=== PATIENT | female | born 1955 | race Caucasian/White ===

== ENCOUNTER → 2017-05-22 | Outpatient (CLI) | payer BC ==
[2017-05-22 10:31] LABS: ALT/SGPT 26 U/L (12-78); AST/SGOT 18 U/L (15-37); BLOOD UREA NITROGEN 20 mg/dl (7-18); BUN/CREATININE RATIO 29.6 (10-20); CALCIUM 9.4 mg/dl (8.5-10.1); CARBON DIOXIDE 29 mmol/L (21-32); CHLORIDE 105 mmol/L (98-107); CREATININE 0.67 mg/dl (0.60-1.20); GLUCOSE 103 mg/dl (70-99); POTASSIUM 4.6 mmol/L (3.5-5.1); SODIUM 139 mmol/L (136-145)
[2017-05-22 10:43] LABS: ALB/GLOB RATIO 1.1 (0.9-2); ALKALINE PHOSPHATASE 97 U/L (45-117); PHOSPHORUS 3.2 mg/dl (2.5-4.9)
[2017-05-22 14:38] LABS: CALCIUM URINE 10.6 mg/dl
== END | disposition home or self-care (01) ==
LOC: C.LAB1850 08:24
PROVIDERS: ATTEND Internal Medicine Endocrinology, Diabetes & Metabolism
DX: E55.9 Vitamin D deficiency, unspecified (principal); E83.52 Hypercalcemia; E04.9 Nontoxic goiter, unspecified

== ENCOUNTER → 2017-11-13 | Outpatient (CLI) | payer BC ==
[2017-11-13 10:23] LABS: ALBUMIN 3.8 gm/dl (3.4-5.0); ALT/SGPT 27 U/L (12-78); BLOOD UREA NITROGEN 14 mg/dl (7-18); CALCIUM 9.5 mg/dl (8.5-10.1); CARBON DIOXIDE 28 mmol/L (21-32); CHOLESTEROL 176 mg/dl (0-200); CREATININE 0.74 mg/dl (0.60-1.20); GLUCOSE 93 mg/dl (70-99); POTASSIUM 4.1 mmol/L (3.5-5.1); SODIUM 135 mmol/L (136-145)
[2017-11-13 10:27] LABS: ALKALINE PHOSPHATASE 109 U/L (45-117); AST/SGOT 20 U/L (15-37); LDL CHOLESTEROL CALCULATED 89 mg/dl; TOTAL PROTEIN 7.2 gm/dl (6.4-8.2)
== END | disposition home or self-care (01) ==
LOC: C.LAB1850 07:50
PROVIDERS: ATTEND Nurse Practitioner Adult Health
DX: Z13.220 Encounter for screening for lipoid disorders (principal); Z82.49 Family history of ischemic heart disease and other diseases of the circulatory system; Z13.1 Encounter for screening for diabetes mellitus

== ENCOUNTER → 2018-04-09 | Outpatient (CLI) | payer BC ==
[2018-04-09 09:55] LABS: HEMATOCRIT 41.8 % (37-47); MEAN CELL VOLUME 93.5 fL (80-100); MEAN CORPUSCULAR HEMOGLOBIN 31.3 pg (25-34); MEAN CORPUSCULAR HGB CONC 33.5 g/dl (32-36); RED CELL DISTRIBUTION WIDTH CV 13.7 % (11.5-14.5); RED CELL DISTRIBUTION WIDTH SD 47.2 fL (36.4-46.3); WHITE BLOOD COUNT 3.23 K/uL (4.8-10.8)
[2018-04-09 10:04] LABS: MEAN PLATELET VOLUME 9.6 fL (7.4-10.4); PLATELET COUNT 267 K/uL (130-400)
[2018-04-09 11:12] LABS: ALBUMIN 3.9 gm/dl (3.4-5.0); ALKALINE PHOSPHATASE 103 U/L (45-117); ALT/SGPT 47 U/L (12-78); AST/SGOT 36 U/L (15-37); BLOOD UREA NITROGEN 13 mg/dl (7-18); CALCIUM 9.4 mg/dl (8.5-10.1); CARBON DIOXIDE 27 mmol/L (21-32); CREATININE 0.78 mg/dl (0.60-1.20); GLUCOSE 89 mg/dl (70-99); POTASSIUM 4.7 mmol/L (3.5-5.1); SODIUM 137 mmol/L (136-145); TOTAL PROTEIN 7.4 gm/dl (6.4-8.2)
== END | disposition home or self-care (01) ==
LOC: C.LAB1850 08:55
PROVIDERS: ATTEND Psychiatry & Neurology Neurology
DX: G25.0 Essential tremor (principal); R25.9 Unspecified abnormal involuntary movements; R29.898 Other symptoms and signs involving the musculoskeletal system

== ENCOUNTER 2020-08-26 08:28 | Inpatient (IN) ==
--- NOTE | 2020-08-26 08:45 | CT Scan Report ---
CT head/brain wo con CLINICAL HISTORY: 64 years-old Female with Stroke Like Symptoms. Acute strokelike symptoms TECHNIQUE: Multiple axial CT images of the head were obtained without contrast. A dose lowering tech nique was utilized adhering to the principles of ALARA. CT DOSE: 537.48 mGy.cm COMPARISON: CTA head and neck 04/24/2018, brain MRI 04/15/2018 FINDINGS: No acute intracranial hemorrhage, midline shift, intracranial mass, hydrocephalus, territorial ischem ia or abnormal extra-axial collection. Age-related involutional changes. Patchy white matter hypodens ities suggest chronic microvascular ischemic disease. The calvarium is intact. The paranasal sinuses, mastoid air cells, and middle ear cavities are clear . IMPRESSION: No acute intracranial abnormality. ACT 112: Negative or not required by law. The above report was generated using voice recognition software. It may contain grammatical, syntax o r spelling errors. Electronically signed by: Merrill Palomo M.D. 08/26/2020 8:44 AM
--- NOTE | 2020-08-26 08:53 | XRay Report ---
XR chest 1V portable HISTORY: 64 years-old Female stroke alert acute strokelike symptoms COMPARISON: Chest radiograph 10/31/2018 TECHNIQUE: Portable AP view of the chest FINDINGS: Cardiomediastinal and hilar silhouettes are within normal limits. There is no pneumothorax, pleural e ffusion, airspace consolidation or overt pulmonary edema. Bones of the chest appear grossly intact. IMPRESSION: No acute process. ACT 112: Negative or not required by law. The above report was generated using voice recognition software. It may contain grammatical, syntax o r spelling errors. Electronically signed by: Merrill Palomo M.D. 08/26/2020 8:52 AM
--- NOTE | 2020-08-26 08:55 | Emergency Department Note ---
History of Present Illness General Chief complaint: Stroke/CVA Symptoms Stated complaint: RT SIDE FACIAL NUMBNESS Time Seen by Provider: 08/26/20 08:32 Source: patient and family ( who is at the bedside) Mode of arrival: ambulatory Limitations: no limitations History of Present Illness This patient comes in after having some facial numbness and slurred speech which started at age 15. She has a history of an asymptomatic stroke that was noted in 2019. She is on a baby aspirin but no blood thinners. A stroke alert was called in triage. I saw the patient very promptly. On my exam she does name objects and her speech is slightly thick but not slurred. She has no change in vision. No fall or head trauma. No recent surgery. No blood or melena in her stool. No chest pain or shortness of breath or abdominal pain. No numbness or weakness of the arms or legs. No difficulty walking. Home Medications Medication Instructions Recorded Confirmed Type acyclovir 400 mg PO BID 10/31/18 08/26/20 History aspirin [Aspirin Low Dose] 81 mg PO DAILY 10/31/18 08/26/20 History lysine 500 mg PO BID 10/31/18 08/26/20 History cholecalciferol (vitamin D3) 25 1,000 unit PO QAM tab 04/01/19 08/26/20 History mcg (1,000 unit) tablet sodium chloride 5 % eye ointment 1 applic OPB HS gm 04/01/19 08/26/20 History turmeric root extract 500 mg 1,000 mg PO DAILY cap 04/01/19 08/26/20 History capsule cetirizine 10 mg tablet 10 mg PO DAILY tab 04/29/19 08/26/20 History ivermectin 1 % topical cream 1 appln TOPICAL DAILY gm 04/29/19 08/26/20 History oxymetazoline 1 % topical cream 1 appln TOPICAL DAILY gm 04/29/19 08/26/20 History propranolol 60 mg capsule,24 60 mg PO DAILY #90 cap 07/12/20 08/26/20 Rx hr,extended release ammonium lactate [Radha-Hydrolac] 1 applic TOPICAL DAILY 08/26/20 08/26/20 History melatonin 5 mg PO HS PRN 08/26/20 08/26/20 History Allergies Allergy/AdvReac Type Severity Reaction Status Date / Time No Known Allergies Allergy Verified 08/26/20 09:49 Past Med/Surg History Medical History (Updated 08/26/20 @ 15:51 by Roger Negrete MD) Blood pressure elevated without history of HTN Chronic cerebral ischemia Cogwheel rigidity Essential tremor H/O malignant neoplasm of skin Hyperglycemia Occipital infarction Parathyroid abnormality Resting tremor Rosacea Surgical History History of abdominoplasty History of basal cell cancer History of bunionectomy History of colposcopy History of rotator cuff surgery History of total left hip arthroplasty S/P tonsillectomy and adenoidectomy [place] teeth extracted Family History Father , Age 44 Myocardial infarction at age 44 Brother Aortic valve disease Sister SVT (supraventricular tachycardia) Paraplegia Diabetes Grandfather (Maternal) Colorectal cancer rectal CA Mother Pancreatic adenocarcinoma Hypertension Denies family history of Ovarian cancer Prostate cancer Breast cancer Social History Smoking Status: Never smoker Hx Alcohol Use: Yes Alcohol Intake Frequency Comment: 2-3 Hx Substance Use: No Preferred Language: Tajik marital status: Current Living Situation: Spouse current occupational status: retired Feels Safe at Home: Yes Dental Care, Regularly: Yes Physical Activity Frequency: 3-4 Times per Week Review of Systems A total of 10 systems reviewed and were otherwise negative Physical Exam Vital Signs Vital Signs - 24 hr 08/26/20 08:30 08/26/20 08:33 08/26/20 08:49 Temperature 36.7 C Temperature Source Oral Pulse Rate 79 79 Pulse Rate from SpO2 Sensor 73 Respiratory Rate 16 15 Respiratory Effort / Characteristics Non-Labored Spontaneous Respiratory Depth Normal Blood Pressure 204/124 H 189/92 H Blood Pressure Mean 150 158 Blood Pressure Position Sitting Pulse Oximetry 98 97 97 Oxygen Delivery Method Room Air Room Air Sepsis Recent Fever Within 48 Hours No Sepsis New/Unexplained Change in Mental Status No Sepsis Action Taken by Nursing No Action Required 08/26/20 09:00 08/26/20 09:16 08/26/20 09:33 Temperature Temperature Source Pulse Rate 84 69 Pulse Rate from SpO2 Sensor 84 70 67 Respiratory Rate 19 18 Respiratory Effort / Characteristics Respiratory Depth Blood Pressure 174/94 H 154/84 H Blood Pressure Mean 125 111 Blood Pressure Position Pulse Oximetry 98 96 97 Oxygen Delivery Method Sepsis Recent Fever Within 48 Hours Sepsis New/Unexplained Change in Mental Status Sepsis Action Taken by Nursing 08/26/20 09:45 08/26/20 09:46 08/26/20 10:00 Temperature Temperature Source Pulse Rate 66 70 60 Pulse Rate from SpO2 Sensor 66 69 62 Respiratory Rate 17 16 13 Respiratory Effort / Characteristics Respiratory Depth Blood Pressure 145/81 H 140/77 Blood Pressure Mean 89 89 Blood Pressure Position Pulse Oximetry 93 97 95 Oxygen Delivery Method Sepsis Recent Fever Within 48 Hours Sepsis New/Unexplained Change in Mental Status Sepsis Action Taken by Nursing 08/26/20 10:01 08/26/20 10:15 08/26/20 10:16 Temperature Temperature Source Pulse Rate 62 64 67 Pulse Rate from SpO2 Sensor 62 65 67 Respiratory Rate 15 25 H 18 Respiratory Effort / Characteristics Respiratory Depth Blood Pressure 145/93 H Blood Pressure Mean 116 Blood Pressure Position Pulse Oximetry 95 94 97 Oxygen Delivery Method Sepsis Recent Fever Within 48 Hours Sepsis New/Unexplained Change in Mental Status Sepsis Action Taken by Nursing 08/26/20 10:30 08/26/20 10:45 08/26/20 11:00 Temperature Temperature Source Pulse Rate 61 63 64 Pulse Rate from SpO2 Sensor 62 63 66 Respiratory Rate 13 13 13 Respiratory Effort / Characteristics Respiratory Depth Blood Pressure 148/76 H 139/78 133/85 Blood Pressure Mean 96 107 103 Blood Pressure Position Pulse Oximetry 97 96 94 Oxygen Delivery Method Sepsis Recent Fever Within 48 Hours Sepsis New/Unexplained Change in Mental Status Sepsis Action Taken by Nursing 08/26/20 12:00 08/26/20 12:15 08/26/20 12:30 Temperature Temperature Source Pulse Rate 63 63 62 Pulse Rate from SpO2 Sensor 65 65 63 Respiratory Rate 13 16 Respiratory Effort / Characteristics Respiratory Depth Blood Pressure 147/85 H 129/79 140/88 Blood Pressure Mean 104 83 109 Blood Pressure Position Pulse Oximetry 96 95 96 Oxygen Delivery Method Sepsis Recent Fever Within 48 Hours Sepsis New/Unexplained Change in Mental Status Sepsis Action Taken by Nursing General: Well developed well nourished middle-aged female who appears n no acute distress, breathing comfortably on room air. Normal speech, slightly thick but not slurred. HEENT: Normal cephalic atraumatic. Pupils are equal round and reactive to light. Extraocular movements are intact. Oropharynx is pink with moist mucous membranes. No swelling of the mouth lips or tongue. Neck: Supple with a midline trachea. No meningeal signs or stiffness, no JVD or bruits. No Stridor. Chest: Clear to auscultation bilaterally. No wheezes or rhonchi. No increased work of breathing. Heart: Regular rate and rhythm without murmurs or gallops. Abdomen: Soft nontender, nondistended without rebound guarding or rigidity. Extremities: No cyanosis clubbing or edema. No calf tenderness or assymetry Spine/Back. Non tender to palpation. No CVA tenderness Skin: Good turgor without rashes. Neurologic exam: Cranial nerves two through 12 are intact. Motor and sensation are intact and symmetrical throughout. She has some slight asymmetry of the nasolabial fold on the right Course Administered Medications Discontinued Medications Clopidogrel Bisulfate (Clopidogrel Bisulfate 300 Mg Tab) 300 mg PO NOW STA Stop: 08/26/20 09:10 Last Admin: 08/26/20 09:43 Dose: Not Given Documented by: [id number] Sodium Chloride (Nss 1000ml) 500 mls @ 999 mls/hr IV .Q31M ONE Stop: 08/26/20 09:49 Last Infusion: 08/26/20 10:14 Dose: 0 mls/hr Documented by: [id number] Admin: 08/26/20 09:42 Dose: 999 mls/hr Documented by: [id number] Ioversol (Optiray 320 125ml) 120 ml IV ONCE ONE Stop: 08/26/20 09:18 Last Admin: 08/26/20 09:17 Dose: 120 ml Documented by: [id number] Critical Care Time Critical Care Time: Yes Total Critical Care Time: 30 Due to the patient's acute strokelike symptoms, need for prompt diagnosis and care, consultation with the teleneurologist and consideration for possible TPA, I have personally spent greater than 30 minutes of critical care time in the direct management of this patient. This includes bedside care, interpretation of diagnostic studies, and testing, discussion with consultants, patient, and family members, and other required patient management activities. This 30 minutes is in excess of all separately billable procedures. Medical Decision Making Differential Diagnosis Stroke, TIA, hypertensive emergency, electrolyte or metabolic abnormality, infection, intracranial hemorrhage, Covid Medical Records Attestation: I reviewed the patient's medical records. Home Medications Current Medication List: was personally reviewed by me Laboratory Data Attestation: I reviewed the patient's lab results. Result diagrams: 08/26/20 08:45 08/26/20 08:45 Lab Results 08/26/20 08/26/20 08/26/20 Range/Units 08:45 08:45 08:45 WBC 3.73 L (4.8-10.8) K/uL RBC 4.58 (4.2-5.4) M/uL Hgb 14.8 (12.0-16.0) g/dL POC Hgb (12.0-16.0) g/dl Hct 43.0 (37-47) % POC Hct (37-47) % MCV 93.9 (80-100) fL MCH 32.3 (25-34) pg MCHC 34.4 (32-36) g/dL RDW Std Deviation 44.6 (36.4-46.3) fL RDW Coeff of [place] 12.9 (11.5-14.5) % Plt Count 332 (130-400) K/uL MPV 9.6 (7.4-10.4) fL Immature Gran % (Auto) 0.0 % Neut % (Auto) 52.8 % Lymph % (Auto) 34.6 % [place] % (Auto) 9.4 % Eos % (Auto) 2.9 % Baso % (Auto) 0.3 % Neut # (Auto) 1.97 (1.4-6.5) K/uL Lymph # (Auto) 1.29 (1.2-3.4) K/uL [place] # (Auto) 0.35 (0.11-0.59) K/uL Eos # (Auto) 0.11 (0-0.5) K/uL Baso # (Auto) 0.01 (0-0.2) K/uL Immature Gran # (Auto) 0.00 (0.00-0.02) K/uL PT 10.6 (9.0-12.0) Seconds INR 1.0 (0.9-1.1) APTT 27.7 (21.0-31.0) Seconds PTT Ratio 1.0 POC Sodium (135-144) mmol/L Sodium 139 (136-145) mmol/L POC Potassium (3.3-5.0) mmol/L Potassium 4.0 (3.5-5.1) mmol/L POC Chloride (101-112) mmol/L Chloride 106 (98-107) mmol/L Carbon Dioxide 27 (21-32) mmol/L POC Total CO2 (24-31) mmol/L Anion Gap 6.0 (3-11) POC Anion Gap (16-25) mmol/L POC BUN (7-18) mg/dl BUN 15 (7-18) mg/dl Creatinine 0.89 (0.6-1.2) mg/dl POC Creatinine (0.6-1.3) mg/dl Est Cr Clr Drug Dosing 58.7 ml/min Est GFR ( Amer) 79.4 Est GFR (Non-Af Amer) 68.5 BUN/Creatinine Ratio 16.6 (10-20) Glucose 104 H (70-99) mg/dl POC Glucose (other) (70-99) mg/dl Calcium 9.6 (8.5-10.1) mg/dl POC Ioniz Calcium Betty (1.12-1.32) mmol/l Magnesium 2.2 (1.8-2.4) mg/dl Total Bilirubin 0.5 (0.2-1) mg/dl AST 18 (15-37) U/L ALT 21 (12-78) U/L Alkaline Phosphatase 82 (45-117) U/L Troponin I < 0.015 (0-0.045) ng/ml Total Protein 7.7 (6.4-8.2) gm/dl Albumin 3.9 (3.4-5.0) gm/dl Globulin 3.8 (2.5-4.0) gm/dl Albumin/Globulin Ratio 1.0 (0.9-2) COVID-19 Eval Order SARS-CoV-2, RNA, NAAT (NEGATIVE) Blood Type Antibody Screen 08/26/20 08/26/20 08/26/20 Range/Units 08:45 08:58 09:15 WBC (4.8-10.8) K/uL RBC (4.2-5.4) M/uL Hgb (12.0-16.0) g/dL POC Hgb 15.3 (12.0-16.0) g/dl Hct (37-47) % POC Hct 45 (37-47) % MCV (80-100) fL MCH (25-34) pg MCHC (32-36) g/dL RDW Std Deviation (36.4-46.3) fL RDW Coeff of [place] (11.5-14.5) % Plt Count (130-400) K/uL MPV (7.4-10.4) fL Immature Gran % (Auto) % Neut % (Auto) % Lymph % (Auto) % [place] % (Auto) % Eos % (Auto) % Baso % (Auto) % Neut # (Auto) (1.4-6.5) K/uL Lymph # (Auto) (1.2-3.4) K/uL [place] # (Auto) (0.11-0.59) K/uL Eos # (Auto) (0-0.5) K/uL Baso # (Auto) (0-0.2) K/uL Immature Gran # (Auto) (0.00-0.02) K/uL PT (9.0-12.0) Seconds INR (0.9-1.1) APTT (21.0-31.0) Seconds PTT Ratio POC Sodium 139 (135-144) mmol/L Sodium (136-145) mmol/L POC Potassium 4.1 (3.3-5.0) mmol/L Potassium (3.5-5.1) mmol/L POC Chloride 103 (101-112) mmol/L Chloride (98-107) mmol/L Carbon Dioxide (21-32) mmol/L POC Total CO2 27 (24-31) mmol/L Anion Gap (3-11) POC Anion Gap 14.0 L (16-25) mmol/L POC BUN 15 (7-18) mg/dl BUN (7-18) mg/dl Creatinine (0.6-1.2) mg/dl POC Creatinine 0.8 (0.6-1.3) mg/dl Est Cr Clr Drug Dosing ml/min Est GFR ( Amer) Est GFR (Non-Af Amer) BUN/Creatinine Ratio (10-20) Glucose (70-99) mg/dl POC Glucose (other) 108 H (70-99) mg/dl Calcium (8.5-10.1) mg/dl POC Ioniz Calcium Betty 1.19 (1.12-1.32) mmol/l Magnesium (1.8-2.4) mg/dl Total Bilirubin (0.2-1) mg/dl AST (15-37) U/L ALT (12-78) U/L Alkaline Phosphatase (45-117) U/L Troponin I (0-0.045) ng/ml Total Protein (6.4-8.2) gm/dl Albumin (3.4-5.0) gm/dl Globulin (2.5-4.0) gm/dl Albumin/Globulin Ratio (0.9-2) COVID-19 Eval [email or web address] SARS-CoV-2, RNA, NAAT (NEGATIVE) Blood Type O Positive Antibody Screen NEGATIVE 08/26/20 Range/Units 09:15 WBC (4.8-10.8) K/uL RBC (4.2-5.4) M/uL Hgb (12.0-16.0) g/dL POC Hgb (12.0-16.0) g/dl Hct (37-47) % POC Hct (37-47) % MCV (80-100) fL MCH (25-34) pg MCHC (32-36) g/dL RDW Std Deviation (36.4-46.3) fL RDW Coeff of [place] (11.5-14.5) % Plt Count (130-400) K/uL MPV (7.4-10.4) fL Immature Gran % (Auto) % Neut % (Auto) % Lymph % (Auto) % [place] % (Auto) % Eos % (Auto) % Baso % (Auto) % Neut # (Auto) (1.4-6.5) K/uL Lymph # (Auto) (1.2-3.4) K/uL [place] # (Auto) (0.11-0.59) K/uL Eos # (Auto) (0-0.5) K/uL Baso # (Auto) (0-0.2) K/uL Immature Gran # (Auto) (0.00-0.02) K/uL PT (9.0-12.0) Seconds INR (0.9-1.1) APTT (21.0-31.0) Seconds PTT Ratio POC Sodium (135-144) mmol/L Sodium (136-145) mmol/L POC Potassium (3.3-5.0) mmol/L Potassium (3.5-5.1) mmol/L POC Chloride (101-112) mmol/L Chloride (98-107) mmol/L Carbon Dioxide (21-32) mmol/L POC Total CO2 (24-31) mmol/L Anion Gap (3-11) POC Anion Gap (16-25) mmol/L POC BUN (7-18) mg/dl BUN (7-18) mg/dl Creatinine (0.6-1.2) mg/dl POC Creatinine (0.6-1.3) mg/dl Est Cr Clr Drug Dosing ml/min Est GFR ( Amer) Est GFR (Non-Af Amer) BUN/Creatinine Ratio (10-20) Glucose (70-99) mg/dl POC Glucose (other) (70-99) mg/dl Calcium (8.5-10.1) mg/dl POC Ioniz Calcium Betty (1.12-1.32) mmol/l Magnesium (1.8-2.4) mg/dl Total Bilirubin (0.2-1) mg/dl AST (15-37) U/L ALT (12-78) U/L Alkaline Phosphatase (45-117) U/L Troponin I (0-0.045) ng/ml Total Protein (6.4-8.2) gm/dl Albumin (3.4-5.0) gm/dl Globulin (2.5-4.0) gm/dl Albumin/Globulin Ratio (0.9-2) COVID-19 Eval Order SARS-CoV-2, RNA, NAAT NEGATIVE (NEGATIVE) Blood Type Antibody Screen Imaging Data Attestation: I personally reviewed and interpreted this imaging study as follo ws: My Impression: Head CT- no acute hemorrhage or mass-effect Radiologist's Impression: CT head/brain wo con CLINICAL HISTORY: 64 years-old Female with Stroke Like Symptoms. Acute strokelike symptoms TECHNIQUE: Multiple axial CT images of the head were obtained without contrast. A dose lowering technique was utilized adhering to the principles of ALARA. CT DOSE: 537.48 mGy.cm COMPARISON: CTA head and neck 04/24/2018, brain MRI 04/15/2018 FINDINGS: No acute intracranial hemorrhage, midline shift, intracranial mass, hydrocephalus, territorial ischemia or abnormal extra-axial collection. Age- related involutional changes. Patchy white matter hypodensities suggest chronic microvascular ischemic disease. The calvarium is intact. The paranasal sinuses, mastoid air cells, and middle ear cavities are clear. IMPRESSION: No acute intracranial abnormality. CT angio neck with con, CT angio head w con CLINICAL HISTORY: 64 years-old Female with cva. Acute strokelike symptoms COMPARISON STUDY: Head CT 08/26/2020, CTA head and neck 04/23/2018. TECHNIQUE: Following the IV administration of 120 mL of Optiray 320, CT angiogram of the head and neck was performed from the aortic arch to the skull apex. Images are reviewed in the axial, sagittal, and coronal planes. 3-D MIPS images are created and assessed. IV contrast was administered without complication. All measurements were calculated based on NASCET criteria. A dose lowering technique was utilized adhering to the principles of ALARA. CT DOSE: 580.90 mGy.cm FINDINGS: The imaged thoracic aortic arch is unremarkable. Mild mixed plaque at the origin of the left subclavian artery without stenosis. The innominate and imaged subclavian arteries are patent. The imaged opacified pulmonary artery is patent. Patency of the common carotid arteries. The right internal carotid artery is widely patent. Moderate mixed plaque of the left carotid bulb and proximal left ICA resulting in less than 50% luminal narrowing. Calcified plaque is also noted within the cavernous and supraclinoid segments without significant stenosis. The middle and anterior cerebral arteries are widely patent. The vertebral arteries are codominant and are widely patent. The basilar and posterior cerebral arteries are also widely patent. No aneurysm, dissection, high-grade stenosis or proximal branch occlusion. The sinuses are patent. There is no abnormal intracranial enhancement. Lung apices are clear without pneumothorax. Mild bronchial wall thickening is noted in addition to a few prominent right hilar lymph nodes. No prevertebral edema. IMPRESSION: 1. Unremarkable CTA of the head and neck without aneurysm, dissection, high- grade stenosis or proximal branch occlusion. 2. Moderate mixed plaque of the left carotid bulb and proximal left ICA redemonstrated resulting in less than 50% luminal narrowing. ECG Data Attestation: I personally reviewed and interpreted this ECG as follows: Indication: + weakness Rate (beats per minute): 65 Rhythm: + normal sinus ECG Intervals/blocks: + Normal QRS, + Normal QT and + Normal FL ECG [place]: + Normal ECG ST segments: + Normal ST segments ECG Findings: no PACs and no PVCs Comparison ECG Date: from (11/01/19) Change: no significant change MDM Narrative This patient comes in as described above. She was placed on a etl informatica architect in B1. She was called as a stroke alert from triage. I saw her promptly. She has very mild mild symptoms. She may have a mild weakness of the right face she feels that her speech is different but I can understand what she is saying. It sounds like her symptoms have gotten somewhat better and are improving. Her blood pressure was elevated in triage and will rechecked it is down significantly. CAT scan of her head is unremarkable. I did talk to Dr. Zavala from her she teleneurology who saw her promptly as well. She feels that her symptoms are very mild and any benefit of the TPA is outweighed by the risk. The patient and her agree with this as to why her symptoms are extremely mild at this point. I did add a CTA of the head and chest as well and there are no acute findings. She will need a further stroke work-up and need to be admitted. EKG was unremarkable. she has no acute electrolyte or metabolic abnormalities. She was hydrated with IV normal saline she was Covid tested given that she will be admitted and it was negative. Dr. Zavala did recommend loading her with Plavix however she did fail the dysphagia screen and will need to have a more formal study with speech before she can swallow pills. Contiuous cardiac monitoring: An order was placed in the EMR for continuous cardiac monitoring. She was found to have normal sinus rhythm with a pulse of 62. Impression & Plan Acute CVA (cerebrovascular accident), Resting tremor, Facial weakness, Speech abnormality Discharge Plan Visit Data Chief Complaint: Stroke/CVA Symptoms Stated Complaint: RT SIDE FACIAL NUMBNESS ED Provider: Roger Negrete Discharge Problem: Acute CVA (cerebrovascular accident), Resting tremor, Facial weakness, Speech abnormality Forms Stand Alone Forms: My Call Loop Prescriptions Prescriptions: No Action propranolol 60 mg capsule,extended release 24 hr 60 mg PO DAILY Qty: 90 RF: 0 sodium chloride 5 % ointment 1 applic OPB HS RF: 0 turmeric root extract 500 mg capsule 1,000 mg PO DAILY RF: 0 cetirizine 10 mg tablet 10 mg PO DAILY RF: 0 ivermectin 1 % cream 1 appln topical DAILY RF: 0 oxymetazoline 1 % cream 1 appln topical DAILY RF: 0 acyclovir 400 mg Tablet 400 mg PO BID RF: 0 aspirin [Aspirin Low Dose] 81 mg Tablet,Delayed Release (Dr/Ec) 81 mg PO DAILY RF: 0 lysine 500 mg Tablet 500 mg PO BID RF: 0 cholecalciferol (vitamin D3) [Vitamin D3] 1,000 unit (25 mcg) tablet 1,000 unit PO QAM RF: 0 ammonium lactate [Radha-Hydrolac] 12 % cream 1 applic TOPICAL DAILY RF: 0 melatonin 5 mg Tablet 5 mg PO HS PRN (Reason: Sleep) RF: 0 Discharge Problem: Speech abnormality Qualifiers: Speech disturbance type: dysarthria Qualified Code(s): R47.1 - Dysarthria and anarthria
[2020-08-26 08:57] LABS: Basophils # (auto) 0.01 K/uL (0-0.2); Basophils % (auto) 0.3 %; Eosinophils # (auto) 0.11 K/uL (0-0.5); Eosinophils % (auto) 2.9 %; Hemoglobin 14.8 g/dL (12.0-16.0); Lymphocytes # (auto) 1.29 K/uL (1.2-3.4); Lymphocytes % (auto) 34.6 %; Mean Corpuscular Hemoglobin 32.3 pg (25-34); Mean Corpuscular Hgb Conc 34.4 g/dL (32-36); Mean Corpuscular Volume 93.9 fL (80-100); Mean Platelet Volume 9.6 fL (7.4-10.4); Monocytes # (auto) 0.35 K/uL (0.11-0.59); Monocytes % (auto) 9.4 %; Neutrophils # (auto) 1.97 K/uL (1.4-6.5); Neutrophils % (auto) 52.8 %; Platelet Count 332 K/uL (130-400); RDW Coefficient of Variation 12.9 % (11.5-14.5); RDW Standard Deviation 44.6 fL (36.4-46.3); Red Blood Count 4.58 M/uL (4.2-5.4); White Blood Count 3.73 K/uL (4.8-10.8)
[2020-08-26 09:08] LABS: Partial Thromboplastin Time 27.7 Seconds (21.0-31.0); Prothrombin Time 10.6 Seconds (9.0-12.0)
[2020-08-26] MEDS ORDERED: CLOPIDOGREL BISULFATE 300 MG TAB PO STA (09:09)
[2020-08-26 09:14] LABS: Alanine Aminotransferase 21 U/L (12-78); Albumin Level 3.9 gm/dl (3.4-5.0); Aspartate Aminotransferase 18 U/L (15-37); BUN Creatinine Ratio 16.6 (10-20); Blood Urea Nitrogen 15 mg/dl (7-18); Calcium 9.6 mg/dl (8.5-10.1); Carbon Dioxide 27 mmol/L (21-32); Chloride 106 mmol/L (98-107); Creatinine Clr Calc Pharmacy 58.7 ml/min; Est GFR (African American) 79.4; Est GFR (Non-African American) 68.5; Glucose 104 mg/dl (70-99); Magnesium 2.2 mg/dl (1.8-2.4); Sodium 139 mmol/L (136-145)
[2020-08-26 09:15] LABS: iSTAT Creatinine 0.8 mg/dl (0.6-1.3); iSTAT Hemoglobin 15.3 g/dl (12.0-16.0); iSTAT Ionized Calcium 1.19 mmol/l (1.12-1.32); iSTAT Potassium 4.1 mmol/L (3.3-5.0)
[2020-08-26] MEDS ORDERED: OPTIRAY 320 125ml IV ONE (09:17)
[2020-08-26 09:18] LABS: Alkaline Phosphatase 82 U/L (45-117); Bilirubin,Total 0.5 mg/dl (0.2-1); Globulin 3.8 gm/dl (2.5-4.0); Total Protein 7.7 gm/dl (6.4-8.2); Troponin I < 0.015 ng/ml (0-0.045)
[2020-08-26] MEDS ORDERED: SODIUM CHLORIDE 0.9% 1000ML 500 ML IV ONE (09:19)
[2020-08-26] MEDS ORDERED: PHARMACIST DISCHARGE MED REC CONSULT PRN (09:33)
--- NOTE | 2020-08-26 09:50 | CT Scan Report ---
CT angio neck with con, CT angio head w con CLINICAL HISTORY: 64 years-old Female with cva. Acute strokelike symptoms COMPARISON STUDY: Head CT 08/26/2020, CTA head and neck 04/23/2018. TECHNIQUE: Following the IV administration of 120 mL of Optiray 320, CT angiogram of the head and nec k was performed from the aortic arch to the skull apex. Images are reviewed in the axial, sagittal, a nd coronal planes. 3-D MIPS images are created and assessed. IV contrast was administered without com plication. All measurements were calculated based on NASCET criteria. A dose lowering technique was utilized adhering to the principles of ALARA. CT DOSE: 580.90 mGy.cm FINDINGS: The imaged thoracic aortic arch is unremarkable. Mild mixed plaque at the origin of the left subclavi an artery without stenosis. The innominate and imaged subclavian arteries are patent. The imaged opac ified pulmonary artery is patent. Patency of the common carotid arteries. The right internal carotid artery is widely patent. Moderate mixed plaque of the left carotid bulb and proximal left ICA resulti ng in less than 50% luminal narrowing. Calcified plaque is also noted within the cavernous and suprac linoid segments without significant stenosis. The middle and anterior cerebral arteries are widely pa tent. The vertebral arteries are codominant and are widely patent. The basilar and posterior cerebral arteries are also widely patent. No aneurysm, dissection, high-grade stenosis or proximal branch occ lusion. The sinuses are patent. There is no abnormal intracranial enhancement. Lung apices are clear without pneumothorax. Mild bronchial wall thickening is noted in addition to a few prominent right hilar lymph nodes. No prevertebral edema. IMPRESSION: 1. Unremarkable CTA of the head and neck without aneurysm, dissection, high-grade stenosis or proxima l branch occlusion. 2. Moderate mixed plaque of the left carotid bulb and proximal left ICA redemonstrated resulting in l ess than 50% luminal narrowing. ACT 112: Negative or not required by law. The above report was generated using voice recognition software. It may contain grammatical, syntax o r spelling errors. Electronically signed by: Merrill Palomo M.D. 08/26/2020 9:48 AM
--- NOTE | 2020-08-26 10:15 | History & Physical Report ---
Date of Service August 26, 2020 Assessment & Plan (1) Acute CVA (cerebrovascular accident): Admit for likely CVA given her signs and symptoms Would admit under stroke protocol will maintain permissive hypertension await speech therapy for eval. Will consult neuro, will obtain MRI. will consider Echo. (2) Facial weakness: as stated above. (3) Resting tremor: Patient is being seen for resting tremors by Dr. Guajardo Not on Parkison treatment. will monitor. History of Present Illness Primary Care Provider: LETHA Ahn Patient is a 64 yo female with history of right cheek facial numbness and slurred speech at 8:15. She woke up at 7:30 am and felt well. However, at 8:15 she noticed the above symptoms and told her that this is a stroke and she came to the ER. In the ER, due to her low NIH scale, she was not a candidate for tPA. CT scan was negative. Allergies Allergy/AdvReac Type Severity Reaction Status Date / Time No Known Allergies Allergy Verified 08/26/20 09:49 Home Medications Medication Instructions Recorded Confirmed Type acyclovir 400 mg PO BID 10/31/18 08/26/20 History aspirin [Aspirin Low Dose] 81 mg PO DAILY 10/31/18 08/26/20 History lysine 500 mg PO BID 10/31/18 08/26/20 History cholecalciferol (vitamin D3) 25 1,000 unit PO QAM tab 04/01/19 08/26/20 History mcg (1,000 unit) tablet sodium chloride 5 % eye ointment 1 applic OPB HS gm 04/01/19 08/26/20 History turmeric root extract 500 mg 1,000 mg PO DAILY cap 04/01/19 08/26/20 History capsule cetirizine 10 mg tablet 10 mg PO DAILY tab 04/29/19 08/26/20 History ivermectin 1 % topical cream 1 appln TOPICAL DAILY gm 04/29/19 08/26/20 History oxymetazoline 1 % topical cream 1 appln TOPICAL DAILY gm 04/29/19 08/26/20 History propranolol 60 mg capsule,24 60 mg PO DAILY #90 cap 07/12/20 08/26/20 Rx hr,extended release ammonium lactate [Radha-Hydrolac] 1 applic TOPICAL DAILY 08/26/20 08/26/20 History melatonin 5 mg PO HS PRN 08/26/20 08/26/20 History Past Med/Surg History Medical History Blood pressure elevated without history of HTN Chronic cerebral ischemia Cogwheel rigidity Essential tremor H/O malignant neoplasm of skin Hyperglycemia Occipital infarction Parathyroid abnormality Resting tremor Rosacea Surgical History History of abdominoplasty History of basal cell cancer History of bunionectomy History of colposcopy History of rotator cuff surgery History of total left hip arthroplasty S/P tonsillectomy and adenoidectomy [place] teeth extracted Family History Father , Age 44 Myocardial infarction at age 44 Brother Aortic valve disease Sister SVT (supraventricular tachycardia) Paraplegia Diabetes Grandfather (Maternal) Colorectal cancer rectal CA Mother Pancreatic adenocarcinoma Hypertension Denies family history of Ovarian cancer Prostate cancer Breast cancer Social History Smoking Status: Never smoker Hx Alcohol Use: Yes Alcohol Intake Frequency Comment: 2-3 Hx Substance Use: No Preferred Language: Montserratian Communication Ability: Effective 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 Beliefs That Will Affect Care: None marital status: Current Living Situation: Spouse current occupational status: retired Feels Safe at Home: Yes Safety Concerns: Feels Safe At This Time Dental Care, Regularly: Yes Physical Activity Frequency: 3-4 Times per Week Assistive Devices: Glasses Review of Systems Constitutional: see below and no sweats Eyes: see below and no diplopia Ear, Nose, Mouth, Throat: no ear trauma and no hyperacusis Respiratory: no change in sputum Cardiovascular: no chest pain with activity and no dyspnea at rest Gastrointestinal: no bloating Genitourinary: no urinary frequency and no urinary incontinence Musculoskeletal: no radicular pain and no deformity Integumentary: no rash Neurologic: no falls and no paralysis Psychiatric: no behavioral changes and no hopelessness Endocrine: no fatigue and no polyphagia Hematologic / Lymphatic: no coagulopathy Allergy / Immunological: no lip swelling Physical Exam Constitutional: WD/WN, vitals as above well developed and well nourished Eyes: PERRL, conjunctivae normal, anicteric sclerae ENMT: external ear and nose normal, oropharynx normal Neck: trachea midline, no thyromegaly Respiratory: normal respiratory effort, lungs clear to auscultation Cardiovascular: RRR, no murmur, no edema Neurologic: Right facial droop, normal movement of her eyebrows bilaterally, normal sensations. Slurred speech Normal strength, Results & Data Results & Data ([facility]) Vital Signs (Past 12 Hours) Vital Signs Temp Pulse Resp BP Pulse Ox 08/26/20 09:33 154/84 H 97 08/26/20 09:16 69 18 174/94 H 96 08/26/20 09:00 84 19 98 08/26/20 08:49 79 15 189/92 H 97 08/26/20 08:33 97 08/26/20 08:30 36.7 C 79 16 204/124 H 98 PG Care Time/CCT Total # of Minutes Spent Total Time Spent with Patient: Total time spent is greater than 50% in coordination of care (as documented) at patient's floor/unit and/or counseling patient: Coding Level of Care Code 35896 Initial Inpt Care Lvl 3 Diagnoses Acute CVA (cerebrovascular accident) I63.9 Facial weakness R29.810 Resting tremor G25.2
--- NOTE | 2020-08-26 11:16 | Electrocardiogram Report ---
Test Reason : Blood Pressure : / mmHG Vent. Rate : 065 BPM Atrial Rate : 065 BPM P-R Int : 170 ms QRS Dur : 078 ms QT Int : 402 ms P-R-T Axes : 021 -19 037 degrees QTc Int : 418 ms Poor data quality, interpretation may be adversely affected Normal sinus rhythm Normal ECG When compared with ECG of 31-OCT-2018 06:47, No significant change was found Confirmed by Chris Combs ([id number]) on 08/26/2020 11:15:31 AM Referred By: REFERRED SELF Confirmed By:Rex Combs
--- NOTE | 2020-08-26 12:06 | Magnetic Resonance Report ---
MR brain wo con HISTORY: 64 years-old Female stroke/ right sided facial weakness and numbness acute strokelike sympt oms COMPARISON: Head CT, CTA head neck of same day, brain MRI 04/15/2018 TECHNIQUE: Multiplanar multisequence MRI of the brain was obtained without the use of IV contrast. 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 4 mm focus of restricted diffus ion within the right frontal lobe near the vertex, image 7 series 4 and straight mildly decreased sig nal on ADC map. Additionally, there is a linear 2.2 x 1.0 cm area of cortical and subcortical restric radha diffusion left frontal lobe on image 8 series 4 which also demonstrates decreased signal on ADC m ap which demonstrates minimally increased T2/FLAIR signal. No acute territorial infarct. No acute intracranial hemorrhage, midline shift, abnormal extra-axial collection, hydrocephalus or in tracranial mass. Age-related involutional changes. Moderate to extensive T2/FLAIR hyperintensities ar e noted within the white matter of the bilateral cerebral hemispheres. There is no pathologic bloomin g artifact on the T2 star series. Cerebral venous sinuses and major arterial flow voids at the level the skull base appear patent. Trac e left mastoid effusion. Paranasal sinuses are generally clear. The orbits, skull and soft tissues ar e unremarkable. IMPRESSION: 1. Small acute versus subacute infarct of the left frontal lobe measures up to 2.2 cm. 2. Punctate acute versus subacute infarct of the right frontal lobe near the vertex. 3. No acute intracranial hemorrhage or midline shift. 4. Age-related involutional changes with moderate to extensive chronic microvascular ischemic disease . ACT 112: Negative or not required by law. The above report was generated using voice recognition software. It may contain grammatical, syntax o r spelling errors. Electronically signed by: Merrill Palomo M.D. 08/26/2020 12:05 PM
[2020-08-26] MEDS ORDERED: METOPROLOL TARTRATE 1 MG/ML VIAL IV PRN (19:37)
[2020-08-26] MEDS: PROPRANOLOL HCL 60 MG LA CAP PO SCH (20:11)
[2020-08-27 07:53] LABS: Basophils # (auto) 0.03 K/uL (0-0.2); Basophils % (auto) 0.6 %; Eosinophils # (auto) 0.07 K/uL (0-0.5); Eosinophils % (auto) 1.4 %; Hematocrit (blood only) 43.1 % (37-47); Hemoglobin 14.4 g/dL (12.0-16.0); Immature Granulocytes # (auto) 0.01 K/uL (0.00-0.02); Immature Granulocytes % (auto) 0.2 %; Lymphocytes # (auto) 0.97 K/uL (1.2-3.4); Lymphocytes % (auto) 19.6 %; Mean Corpuscular Hemoglobin 31.9 pg (25-34); Mean Corpuscular Hgb Conc 33.4 g/dL (32-36); Mean Corpuscular Volume 95.4 fL (80-100); Mean Platelet Volume 9.7 fL (7.4-10.4); Monocytes # (auto) 0.49 K/uL (0.11-0.59); Monocytes % (auto) 9.9 %; Neutrophils # (auto) 3.37 K/uL (1.4-6.5); Neutrophils % (auto) 68.3 %; Platelet Count 286 K/uL (130-400); RDW Standard Deviation 45.3 fL (36.4-46.3); Red Blood Count 4.52 M/uL (4.2-5.4); White Blood Count 4.94 K/uL (4.8-10.8)
[2020-08-27 08:14] LABS: Calcium 9.4 mg/dl (8.5-10.1); Creatinine Clr Calc Pharmacy 74.7 ml/min; Est GFR (African American) 106.6; Potassium 3.8 mmol/L (3.5-5.1)
[2020-08-27] MEDS ORDERED: CLOPIDOGREL BISULFATE 75 MG TAB PO SCH (09:00)
[2020-08-27] MEDS ORDERED: ATORVASTATIN 40 MG TAB PO SCH (09:00)
[2020-08-27] MEDS ORDERED: ASPIRIN 81 MG ECTAB PO SCH (09:00)
--- NOTE | 2020-08-27 09:43 | XCELERA ---
[id number]
--- NOTE | 2020-08-27 09:58 | Neurology Consultation ---
Date of Consultation August 27, 2020 Assessment & Plan (1) Acute CVA (cerebrovascular accident): (2) Parkinsons disease: Probable embolic infarcts affecting both the left and right middle cerebral artery territories. The right hemispheric infarct is very small and not producing any obvious neurologic symptoms. The left hemispheric infarct would be responsible for her presenting symptoms. She has a history of an incidentally discovered small right occipital lobe infarct in 2018 as well. Her current stroke occurs while on daily low-dose aspirin therapy. I do have a fairly high suspicion for cardioembolism in this patient potentially due to occult atrial fibrillation or possibly an underlying PFO that may not have been evident on her last echocardiogram done in 2018. At this point, I agree with dual antiplatelet therapy as prescribed including daily low-dose aspirin and clopidogrel 75 mg/day. Patient should continue with dual antiplatelet therapy for 3 weeks, after which I would recommend discontinuing daily low-dose aspirin in favor of clopidogrel monotherapy. I agree with the addition of atorvastatin to her medication regimen at this time as well as she does have some atherosclerotic disease within the left internal carotid artery. Although a carotid embolic stroke to the left MCA is possible, I do not think her mild to moderate left ICA stenosis would explain the observed small right frontal lobe infarct. Follow-up with results of up-to-date echocardiogram. If no definitive cardioembolic source is identified I would recommend completion of a 30-day cardiac event monitor as an outpatient to exclude occult atrial fibrillation. Continue medical management of blood pressure. She was hypertensive yesterday. She has been taking propranolol as an outpatient for tremor. This medication may be continued depending on her swallowing assessment. This patient does have a history of what appears to be mild to moderate tremor predominant left alcides-Parkinson's disease. A diagnosis of Parkinson's disease was supported by a DaTscan completed this past May. The patient and Dr. Guajardo have elected to hold off on starting a more specific Parkinson's treatment such as Sinemet or a dopamine agonist. Her propranolol has been providing modest benefit according to the patient and she may continue with this treatment. Patient may follow-up with Dr. Guajardo or Alicja Joseph in neurology clinic. Please contact me if I may be of further assistance. History of Present Illness Reason for Consultation: Stroke Requesting Physician: Aditya Vasquez Attending Physician: Aditya Vasquez History of Present Illness The patient is a 64-year old right-handed female with a chief complaint of acute change in speech with associated right facial weakness and numbness that began acutely yesterday morning. She also complains of some associated numbness affecting the right hand. She was noted to have mild right facial weakness and thick speech during her assessment in the emergency department which occurred approximately 15 minutes after symptom onset. Initial imaging including CT of the head and CT angiography of the head and neck was negative for hemorrhage or acute process or a hemodynamically significant vascular lesion. She did have a telestroke consultation with a specialist at [facility]. TPA was not recommended given the mild nature of her symptoms. A follow-up brain MRI was completed yesterday morning as well which did reveal acute to subacute embolic appearing infarcts in both cerebral hemispheres. Imaging described in further detail below. History notable for an incidentally discovered punctate acute infarct within the right occipital lobe on brain MRI completed in March 2018 for further evaluation of parkinsonism at that time. She does not have any associated vision loss. CT angiography of the head and neck were completed at that time as well which revealed an approximate 30% stenosis at the proximal left internal carotid artery due to atherosclerotic plaque. She has been taking daily low-dose aspirin. She has had several normal lipid panels since that time and has not been taking a statin. She did have a brain DaTscan completed in May 2020 for further assessment of her left upper extremity resting tremor that revealed decreased putaminal activity bilaterally that is asymmetrically greater on the right in a pattern consistent with a clinical diagnosis of Parkinson syndrome. She last saw Dr. Guajardo in neurology clinic on July 27, 2020 for mild tremor predominant Parkinson's disease. Treatment with specific Parkinson's medications such as levodopa or a dopamine agonist have been deferred. She continues with a low-dose of extended release propranolol for her tremor. Allergies Allergy/AdvReac Type Severity Reaction Status Date / Time No Known Allergies Allergy Verified 08/26/20 09:49 Home Medications Medication Instructions Recorded Confirmed Type acyclovir 400 mg PO BID 10/31/18 08/26/20 History aspirin [Aspirin Low Dose] 81 mg PO DAILY 10/31/18 08/26/20 History lysine 500 mg PO BID 10/31/18 08/26/20 History cholecalciferol (vitamin D3) 25 1,000 unit PO QAM tab 04/01/19 08/26/20 History mcg (1,000 unit) tablet sodium chloride 5 % eye ointment 1 applic OPB HS gm 04/01/19 08/26/20 History turmeric root extract 500 mg 1,000 mg PO DAILY cap 04/01/19 08/26/20 History capsule cetirizine 10 mg tablet 10 mg PO DAILY tab 04/29/19 08/26/20 History ivermectin 1 % topical cream 1 appln TOPICAL DAILY gm 04/29/19 08/26/20 History oxymetazoline 1 % topical cream 1 appln TOPICAL DAILY gm 04/29/19 08/26/20 History propranolol 60 mg capsule,24 60 mg PO DAILY #90 cap 07/12/20 08/26/20 Rx hr,extended release ammonium lactate [Radha-Hydrolac] 1 applic TOPICAL DAILY 08/26/20 08/26/20 History melatonin 5 mg PO HS PRN 08/26/20 08/26/20 History Patient History Medical History (Updated 08/27/20 @ 09:26 by Roger Cody MD) Blood pressure elevated without history of HTN Chronic cerebral ischemia Cogwheel rigidity Essential tremor H/O malignant neoplasm of skin Hyperglycemia Occipital infarction Parathyroid abnormality Resting tremor Rosacea Surgical History History of abdominoplasty History of basal cell cancer History of bunionectomy History of colposcopy History of rotator cuff surgery History of total left hip arthroplasty S/P tonsillectomy and adenoidectomy [place] teeth extracted Family History Father , Age 44 Myocardial infarction at age 44 Brother Aortic valve disease Sister SVT (supraventricular tachycardia) Paraplegia Diabetes Grandfather (Maternal) Colorectal cancer rectal CA Mother Pancreatic adenocarcinoma Hypertension Denies family history of Ovarian cancer Prostate cancer Breast cancer Social History Smoking Status: Never smoker Hx Alcohol Use: Yes Alcohol Intake Frequency Comment: 2-3 Hx Substance Use: No Preferred Language: Polish Communication Ability: Effective 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 Beliefs That Will Affect Care: None marital status: Current Living Situation: Spouse current occupational status: retired Feels Safe at Home: Yes Safety Concerns: Feels Safe At This Time Dental Care, Regularly: Yes Physical Activity Frequency: 3-4 Times per Week Assistive Devices: Glasses Review of Systems Constitutional: no fever and no chills Eyes: no blind spots and no diplopia Ear, Nose, Mouth, Throat: no ear pain and no hearing loss Respiratory: no cough and no dyspnea Cardiovascular: no chest pain and no palpitations Gastrointestinal: no nausea and no vomiting Genitourinary: no dysuria Musculoskeletal: no myalgia Integumentary: no rash and no lesions Neurologic: as per Subjective / HPI, + localized weakness, + loss of sensation, + tremor(s) and + headache(s); no confusion and no memory loss Psychiatric: no depression and no anxiety Hematologic / Lymphatic: no easy bleeding and no easy bruising Exam (Neuro) Constitutional: well developed and well nourished; no acute distress Eyes: normal visual torres by confrontation, PERRL, normal accommodation and EOM intact bilaterally; no fundoscopic abnormality, no nystagmus and no papilledema Cardiovascular: Vessels: normal carotid upstroke; no carotid bruit Neurologic: Oriented to:: Person, Place and Time Memory: Short Term Intact and Remote Intact Attention: Span Intact and Concentration Intact Language: Naming Objects and Repeating Phrases Speech Fluency: negative Dysarthria Speech Aphasia: negative Aphasia Fund of Knowledge: Current Events, Past History and Vocabulary Cranial Nerves: Normal II (Visual torres full to confrontation, visual acuity normal), III, IV, (Pupils equal round reactive to light and accommodation, eye movements normal), VIII (Hearing intact), IX, X (Palate elevates to midline), XI (Shoulder shrug intact) and XII (Tongue protrudes to midline); Abnorm V (There is decreased sensation along the right side of the face) and VII (There is moderate weakness of the right lower facial musculature.) Motor Strength: Normal Lower Extremities and Normal Upper Extremities; negative Pronator Drift Motor Tone: Normal Lower Extremities; negative Normal Upper Extremities (The left upper extremity is slightly rigid as compared to the right although no overt cogwheel rigidity.) Muscle Bulk/Involuntary Movements: Rest Tremor (Arm) Laterality: Left; negative Muscle Atrophy Sensation: Light Touch Intact, Pain/Temperature Intact, Vibration Intact and Proprioception Intact Coordination: Normal; negative Limited Balance, Dysdiadochokinesia, Finger-Nose Abnormal and Heel-Osborne Abnormal Deep Tendon Reflexes: Rt Triceps: 2+, Lt Triceps: 2+, Rt Biceps: 2+, Lt Biceps: 2+, Rt Brachioradialis: 2+, Lt Brachioradialis: 2+, Rt Patellar: 2+, Lt Patellar: 2+, Rt Ankle: 2+ and Lt Ankle: 2+ Special Tests: negative Babinski Present Details: Slightly diminished arm swing on the left with ambulation. Gait is not hemiparetic appearing. Ambulation speed normal. Posture is not flexed. Results & Data ([facility]) Vital Signs (Past 12 Hours) Vital Signs Temp Pulse Pulse Resp BP Pulse Ox 08/27/20 08:08 36.7 C 75 16 132/82 96 08/27/20 07:11 76 08/27/20 03:00 36.6 C 80 18 152/74 H 97 08/27/20 00:00 74 08/26/20 22:00 36.6 C 70 18 159/76 H 96 Laboratory Results WBC 4.94, hemoglobin 14.4, hematocrit 43.1, platelet count 286, sodium 142, potassium 3.8, BUN 13, creatinine 0.69, glucose 78, troponin less than 0.015, triglycerides 64, cholesterol 202, LDL 106, VLDL 13, HDL [address] of the head was negative for hemorrhage or acute process. The study did reveal patchy white matter hypodensities suggestive of chronic microvascular ischemic disease. A CT angiogram of the head and neck revealed moderate mixed plaque of the left carotid bulb and proximal left internal carotid artery resulting in less than 50% luminal narrowing. Otherwise, the study was unremarkable, without evidence of aneurysm, dissection, high-grade stenosis, or proximal branch occlusion. MRI of the brain reveals an acute versus subacute infarct of the left frontal lobe measuring up to 2.2 cm, punctate acute versus subacute infarct of the right frontal lobe near the vertex, and age-related involutional changes with moderate to extensive chronic microvascular ischemic disease. These findings were observed by the interpreting radiologist. I reviewed the images as well and agree. An electrocardiogram reveals a normal sinus rhythm, 65 bpm. An echocardiogram completed in April 2018 revealed normal left ventricular size and systolic function with an ejection fraction of 60 to 65%, without regional wall motion abnormalities. Atrial size is normal. No atrial septal defect. Coding Level of Care Code 33099 Inpt Consult Level 5 Diagnoses Acute CVA (cerebrovascular accident) I63.9 Parkinsons disease G20
[2020-08-27] MEDS: PROPRANOLOL HCL 60 MG LA CAP PO SCH (11:40)
--- NOTE | 2020-08-27 12:35 | Discharge Summary ---
Date of Service August 27, 2020 Admission HPI Per Admitting Provider Patient is a 64 yo female with history of right cheek facial numbness and slurred speech at 8:15. She woke up at 7:30 am and felt well. However, at 8:15 she noticed the above symptoms and told her that this is a stroke and she came to the ER. In the ER, due to her low NIH scale, she was not a candidate for tPA. CT scan was negative. Admission Exam Per Admitting Provider Constitutional: WD/WN, vitals as above well developed and well nourished Eyes: PERRL, conjunctivae normal, anicteric sclerae ENMT: external ear and nose normal, oropharynx normal Neck: trachea midline, no thyromegaly Respiratory: normal respiratory effort, lungs clear to auscultation Cardiovascular: RRR, no murmur, no edema Neurologic: Right facial droop, normal movement of her eyebrows bilaterally, normal sensations. Slurred speech Normal strength, Principal Diagnosis Acute CVA Discharge Exam Temp Pulse Resp BP Pulse Ox 36.7 C 75 16 132/82 96 08/27/20 08:08 08/27/20 08:08 08/27/20 08:08 08/27/20 08:08 08/27/20 08:08 Patient is afebrile. Vital signs stable. Constitutional average body habitus; no acute distress ENMT Ears: no hearing impairment Neck normal visual inspection Respiratory normal respiratory effort, lungs clear to auscultation Cardiovascular RRR, no murmur, no edema Gastrointestinal (Abdomen) Inspection/Auscultation: normal bowel sounds Percussion/Palpation: abdomen soft; abdomen nontender Musculoskeletal Extremities: extremities normal to inspection and strength 5/5 throughout Neurologic Speech / Cognition: + abnormal speech (slurred) Right facial droop Psychiatric A+Ox3, euthymic affect Eye Contact: good eye contact Discharge Data Allergies Allergy/AdvReac Type Severity Reaction Status Date / Time No Known Allergies Allergy Verified 09/01/20 11:30 Consultations 08/26/20 09:18 ED Decision to Admit Stat 08/26/20 09:33 Consult Case Management - Discharge Planning Routine Consult Neurology Routine Ordered Studies 08/26/20 08:33 CT head/brain wo con Stat 08/26/20 09:09 CT angio head w con Stat CT angio neck with con Stat 08/26/20 10:45 MR brain wo con Stat Hospital Course (1) Acute CVA (cerebrovascular accident): Right sided facial droop. MRI: 1. Small acute versus subacute infarct of the left frontal lobe measures up to 2.2 cm. 2. Punctate acute versus subacute infarct of the right frontal lobe near the vertex. Neck CTA: 1. Unremarkable CTA of the head and neck without aneurysm, dissection, high-grade stenosis or proximal branch occlusion. 2. Moderate mixed plaque of the left carotid bulb and proximal left ICA redemonstrated resulting in less than 50% luminal narrowing. No evidence of PFO on ECHO. Neurology consult appreciated. Recommend 30 day Holter monitor to r/o a-fib as no clear cause of CVA identified. Seen by speech therapy as well. Recommend easy to chew diet. No aspiration noted. Needs outpatient speech therapy. Discharge home on ASA and Plavix. Patient also started atorvastatin this admission. Will continue on discharge. Follow-up with primary care in 1 week. Patient's updated on patient's condition today. (2) Facial weakness: As stated above. (3) Resting tremor: (4) Parkinsons disease: Mild-moderate tremor predominant left alcides-Parkinson's disease. Diagnose of Parkinson's disease supported by [employer] completed this past May. Not currently treated. Patient follows with Dr. Guajardo. Total Time Total Time Spent Total Time Spent (In Minutes): >30 minutes Total Time Includes: Examination of the Patient, Discharge Planning, Medication Reconciliation and Communication With Other Providers Discharge Plan Discharge Items Patient Disposition: Home - Self-Care Reason For Visit: STROKE Discharge Diagnosis: Acute CVA Activity: Resume your previous activity Lifting: Gradually increase as tolerated Bathing: No limitations Exercise/Sports: Gradually increase as tolerated Driving/Machine Use: Resume 3 days after discharge Weightbearing: Full weightbearing Non-emergency contact: Primary Care Provider Call non-emergency contact if: you have any medication questions and your symptoms worsen Follow-up/Referrals: Elinor Frank CRNP [Primary Care Provider] - Diet: Other - See Diet Comment Diet Comment: Easy to chew and swallow soft foods Addtl Attending Provider Instructions: Follow-up with primary care in 1 week. Outpatient speech therapy recommended. Pending Studies at Discharge: No Stand-Alone Forms: My [employer] Medications and DC Order Prescriptions: New atorvastatin 40 mg Tablet 80 mg PO QAM 30 Days Qty: 60 RF: 0 clopidogrel 75 mg Tablet 75 mg PO QAM 30 Days Qty: 30 RF: 0 Continued propranolol 60 mg capsule,extended release 24 hr 60 mg PO DAILY Qty: 90 RF: 0 sodium chloride 5 % ointment 1 applic OPB HS RF: 0 ivermectin 1 % cream 1 appln topical DAILY RF: 0 oxymetazoline 1 % cream 1 appln topical DAILY RF: 0 acyclovir 400 mg Tablet 400 mg PO BID RF: 0 aspirin [Aspirin Low Dose] 81 mg Tablet,Delayed Release (Dr/Ec) 81 mg PO DAILY RF: 0 lysine 500 mg Tablet 500 mg PO BID RF: 0 cholecalciferol (vitamin D3) [Vitamin D3] 1,000 unit (25 mcg) tablet 1,000 unit PO QAM RF: 0 ammonium lactate [Radha-Hydrolac] 12 % cream 1 applic TOPICAL DAILY RF: 0 melatonin 5 mg Tablet 5 mg PO HS PRN (Reason: Sleep) RF: 0 Discharge Orders: Discharge Order (Routine); Ordered 08/27/20 Ordered By: Gina Limon/Other Patient Handouts: Stroke: Taking Medicines, Stroke: Resources and Support, Stroke: Self-Care, Stroke: Tips for Swallowing Admission Data Admit Date/Time: 08/26/20 10:23 Attending Provider: Aditya Vasquez Admit Provider: Aditya Vasuqez Primary Care Provider: Elinor Frank Other Providers: Hank Estrada ; Roger Cody. Other Interventions: Discharge Summary Assessment (RN) Last Done: 08/27/20 13:42 Supervising Physician Co-Signing Physician Notes Patient seen and examined at bedside. Performed a brief history and examination while at bedside. I reviewed above note by FRED Rico Answered the patient's questions. I agree with above note. Patient admitted with a stroke, will discharge on statin. Appreciate input from Neuro. Continue dual antiplatelet therapy as prescribed including daily low-dose aspirin and clopidogrel 75 mg/day. Patient should continue with dual antiplatelet therapy for 3 weeks, after which I would recommend discontinuing daily low-dose aspirin in favor of clopidogrel monotherapy. As no definitive cardioembolic source is identified, recommend completion of a 30-day cardiac event monitor as an outpatient to exclude occult atrial fibrillation. Coding Level of Care Code D/C Day Management >30 mins Diagnoses Acute CVA (cerebrovascular accident) I63.9 Facial weakness R29.810 Resting tremor G25.2 Parkinsons disease G20
[2020-08-27] MEDS ORDERED: STROKE PATIENT DISCHARGE STA (13:15)
--- NOTE | 2020-08-27 13:40 | Pharmacy Report ---
Pharmacist Stroke Counseling - Date of Service August 27, 2020 - Scope: Pharmacy has been consulted to provide medication discharge counseling for this patient admitted with transient ischemic attack as per the Pharmacist Discharge Counseling for Stroke Patients Protocol. - Medications on Discharge: Home Medications Medication Instructions Recorded Confirmed acyclovir 400 mg PO BID 10/31/18 08/26/20 aspirin [Aspirin Low Dose] 81 mg PO DAILY 10/31/18 08/26/20 lysine 500 mg PO BID 10/31/18 08/26/20 cholecalciferol (vitamin D3) 25 1,000 unit PO QAM tab 04/01/19 08/26/20 mcg (1,000 unit) tablet sodium chloride 5 % eye ointment 1 applic OPB HS gm 04/01/19 08/26/20 turmeric root extract 500 mg 1,000 mg PO DAILY cap 04/01/19 08/26/20 capsule cetirizine 10 mg tablet 10 mg PO DAILY tab 04/29/19 08/26/20 ivermectin 1 % topical cream 1 appln TOPICAL DAILY gm 04/29/19 08/26/20 oxymetazoline 1 % topical cream 1 appln TOPICAL DAILY gm 04/29/19 08/26/20 ammonium lactate [Radha-Hydrolac] 1 applic TOPICAL DAILY 08/26/20 08/26/20 melatonin 5 mg PO HS PRN 08/26/20 08/26/20 New Rx's Medication Instructions Recorded propranolol 60 mg capsule,24 60 mg PO DAILY #90 cap 07/12/20 hr,extended release atorvastatin 80 mg PO QAM 30 Days #60 tab 08/27/20 clopidogrel 75 mg PO QAM 30 Days #30 tab 08/27/20 - Action: The above medications, specifically ones for stroke treatment/prophylaxis, have been reviewed in detail with the patient and/or patient insurance claims representative(s) prior to discharge. This includes indication, common adverse reactions, drug int eractions, and medication administration. Medication counseling has been employed using the teach-back method to ensure understanding. - Outcome: The patient and/or patient insurance claims representative(s) have demonstrated understanding of the medications. Additional comments: Spoke over the phone with patient today. Reviewed new medications to prevent stroke including Aspirin and Atorvastatin. Highlighted that patient will need to take 2 tablets of the atorvastatin to make the Rx 80mg dose. She can have PCP change this Rx to 80mg tab at a follow up visit as long as she is tolerating this dose and dose does not need to be decreased. Discussed why they are being used and common side effects in great detail. Reviewed how to use the medications, what to do if doses are missed, common drug interactions, common side effects, what to watch out for while using the medications, and how to store the medications. Pt verbalized understanding and restated the jimenez points of each medication. Thank you for allowing pharmacy to be involved in the care of this patient. Please call [phone] with any additional questions
[2020-08-28 06:04] LABS: Estimated Average Glucose 117 mg/dl; Hemoglobin A1C 5.7 % (4.5-5.6)
== END 2020-08-27 14:15 | disposition home or self-care (01) | DRG 66 ==
LOC: ED 08:28 → 2W 10:23